=== PATIENT | female | born 1955 | race Two or more races ===

== ENCOUNTER 2016-09-23 16:40 | Observation (INO) | payer MEDICAID ==
[~2016-09-23] VITALS: Ht 152.4 cm; Wt 45.8 kg
[~2016-09-23 16:40] MED LIST: AMOX-263 PO; HYDR25TA4 PO
[2016-09-23 19:32] LABS: Partial Thromboplastin Time 26.8 sec (22.64-33.71); Prothrombin Time 9.4 sec (9.37-12.3)
[2016-09-23 19:33] LABS: Albumin 3.8 g/dL (3.4-5.0); Alkaline Phosphatase 114 U/L (45-117); Anion Gap 9 (5-15); Aspartate Aminotransferase 22 U/L (15-37); BUN/Creatinine Ratio 18.8; Bilirubin, Total 0.4 mg/dL (0.2-1.0); Blood Urea Nitrogen 12 mg/dL (7-18); Calcium 8.8 mg/dL (8.5-10.1); Carbon Dioxide 27 mmol/L (21-32); Chloride 111 mmol/L (98-107); GFR African American 122 mL/min; GFR Non-African American 101 mL/min; Glucose 106 mg/dL (74-106); Magnesium 2.9 mg/dL (1.6-2.6); Potassium 3.8 mmol/L (3.5-5.1); Sodium 147 mmol/L (136-145); Total Protein 7.4 g/dL (6.4-8.2)
[2016-09-23 19:46] LABS: Basophils # (auto) 0 uL; Basophils % (auto) 0.8 % (0.0-2.0); Eosinophils # (auto) 0.2 uL; Eosinophils % (auto) 4.6 % (0.0-7.0); Hematocrit 41.8 % (36.0-46.0); Hemoglobin 14.2 g/dL (12.2-16.2); Lymphocytes # (auto) 1.4 uL; Lymphocytes % (auto) 42.4 % (10.0-50.0); Mean Corpuscular Hemoglobin 30.2 pg (28.0-32.0); Mean Corpuscular Hgb Conc. 33.9 g/dL (32.0-36.0); Mean Corpuscular Volume 89.1 fL (80.0-100.0); Mean Platelet Volume 8.4 fL (7.4-10.4); Monocytes # (auto) 0.4 uL; Monocytes % (auto) 11.8 % (0.0-12.0); Neutrophils # (auto) 1.4 uL; Neutrophils % (auto) 40.4 % (37.0-80.0); Platelet Count (auto) 245 10^3/uL (140-450); Red Cell Distribution Width 12.9 % (11.6-16.0); White Blood Cell 3.4 10^3/uL (4.4-10.8)
[2016-09-23] MEDS ORDERED: cefTRIAXone 1GM/50ML D5W 50 ML IV ONE (20:00)
[2016-09-23] MEDS ORDERED: ACETAMINOPHEN 325 MG TAB PO ONE (20:00)
[2016-09-23 20:11] LABS: INR 0.87 (0.9-1.15)
[2016-09-23 20:45] VITALS: BP 152/96
== END 2016-09-23 21:12 | disposition home or self-care (01) | DRG 144 ==
LOC: ER 16:42 → OVERFLOW 18:15 → ER 21:12
PROVIDERS: ADMIT Family Medicine; ATTEND Family Medicine
DX: J20.9 Acute bronchitis, unspecified (principal); I10 Essential (primary) hypertension
CPT/HCPCS: 36415; 71020; 80053; 83735; 84484; 85025; 85610; 85730; 87040; 93005; 96365; 99285; G0378; J0696; J7040

== ENCOUNTER 2018-03-29 22:01 | Emergency (ER) | payer MEDICAID ==
[~2018-03-29] VITALS: Ht 157.5 cm; Wt 62.1 kg
[2018-03-29 22:50] LABS: Basophils # (auto) 0 uL; Basophils % (auto) 0.8 % (0.0-2.0); Eosinophils # (auto) 0.1 uL; Eosinophils % (auto) 2.9 % (0.0-7.0); Hematocrit 42.9 % (36.0-46.0); Hemoglobin 14.6 g/dL (12.2-16.2); Lymphocytes # (auto) 2.3 uL; Lymphocytes % (auto) 54.9 % (10.0-50.0); Mean Corpuscular Hemoglobin 30.8 pg (28.0-32.0); Mean Corpuscular Hgb Conc. 34.1 g/dL (32.0-36.0); Mean Corpuscular Volume 90.2 fL (80.0-100.0); Monocytes # (auto) 0.3 uL; Monocytes % (auto) 7.1 % (0.0-12.0); Neutrophils # (auto) 1.5 uL; Neutrophils % (auto) 34.3 % (37.0-80.0); Nucleated Red Blood Cells % 0.2 %; Platelet Count (auto) 270 10^3/uL (140-450); Red Blood Cells 4.76 10^6/uL (4.0-5.20); Red Cell Distribution Width 12.9 % (11.8-14.3); White Blood Cell 4.2 10^3/uL (4.4-10.8)
[2018-03-29 23:07] LABS: Alanine Aminotransferase 23 U/L (13-56); Albumin 3.8 g/dL (3.4-5.0); Anion Gap 6 (5-15); Aspartate Aminotransferase 14 U/L (15-37); Blood Urea Nitrogen 14 mg/dL (7-18); Carbon Dioxide 25 mmol/L (21-32); Chloride 110 mmol/L (98-107); GFR African American 109 mL/min; GFR Non-African American 90 mL/min; Glucose 99 mg/dL (74-106); Magnesium 2.5 mg/dL (1.6-2.6); Potassium 3.8 mmol/L (3.5-5.1); Sodium 141 mmol/L (136-145)
[2018-03-29 23:12] LABS: Alkaline Phosphatase 113 U/L (45-117); Bilirubin, Total 0.3 mg/dL (0.2-1.0); Total Protein 7.5 g/dL (6.4-8.2)
[2018-03-30 03:03] LABS: Urine Bacteria FEW /hpf (None Seen); Urine Blood Negative /uL (Negative); Urine Mucus FEW (None Seen); Urine Specific Gravity 1.009 (1.001-1.035); Urine WBC 10 /hpf (0 - 5)
[2018-03-30 05:00] VITALS: BP 107/77
== END 2018-03-30 05:05 | disposition home or self-care (01) ==
LOC: ER 22:02
DX: N83.292 Other ovarian cyst, left side (principal); I10 Essential (primary) hypertension; Z88.0 Allergy status to penicillin
CPT/HCPCS: 36415; 71045; 74176; 80053; 81001; 83735; 83880; 84443; 84484; 85025; 93005

== ENCOUNTER 2018-09-27 06:30 | Emergency (ER) | payer MEDICAID ==
[~2018-09-27] VITALS: Ht 149.9 cm; Wt 63.5 kg
[2018-09-27 07:11] VITALS: BP 137/88
[2018-09-27 07:36] LABS: Basophils # (auto) 0 uL; Basophils % (auto) 0.9 % (0.0-2.0); Eosinophils # (auto) 0.1 uL; Eosinophils % (auto) 3.7 % (0.0-7.0); Hematocrit 41.6 % (36.0-46.0); Hemoglobin 14.3 g/dL (12.2-16.2); Mean Corpuscular Hemoglobin 31.1 pg (28.0-32.0); Mean Corpuscular Hgb Conc. 34.3 g/dL (32.0-36.0); Mean Corpuscular Volume 90.4 fL (80.0-100.0); Monocytes # (auto) 0.3 uL; Monocytes % (auto) 7.8 % (0.0-12.0); Neutrophils # (auto) 1.3 uL; Neutrophils % (auto) 33.6 % (37.0-80.0); Nucleated Red Blood Cells % 0.3 %; Platelet Count (auto) 306 10^3/uL (140-450); Red Cell Distribution Width 12.9 % (11.8-14.3); White Blood Cell 3.8 10^3/uL (4.4-10.8)
[2018-09-27 07:52] LABS: Albumin 3.8 g/dL (3.4-5.0); Anion Gap 3 (5-15); Blood Urea Nitrogen 19 mg/dL (7-18); Calcium 8.7 mg/dL (8.5-10.1); Carbon Dioxide 29 mmol/L (21-32); Chloride 110 mmol/L (98-107); Glucose 92 mg/dL (74-106); Potassium 3.8 mmol/L (3.5-5.1); Sodium 142 mmol/L (136-145)
[2018-09-27 07:58] LABS: Alanine Aminotransferase 34 U/L (13-56); Alkaline Phosphatase 102 U/L (45-117); Aspartate Aminotransferase 25 U/L (15-37); BUN/Creatinine Ratio 24.7; Bilirubin, Total 0.4 mg/dL (0.2-1.0); GFR African American 98 mL/min; GFR Non-African American 81 mL/min; Total Protein 7.4 g/dL (6.4-8.2)
[2018-09-27] MEDS ORDERED: IPRATROPIUM BROM 0.5 MG/2.5ML INH SOL NEB ONE (08:00)
[2018-09-27] MEDS ORDERED: ALBUTEROL SULF 2.5 MG/0.5ML(0.5%) NEB SOLN NEB ONE (08:00)
[2018-09-27] MEDS ORDERED: methylPREDNISolone SOD SUCC 125 MG/2 ML VL IM ONE (08:15)
[2018-09-27] MEDS ORDERED: cefTRIAXone SOD 1,000 MG VL IM ONE (08:15)
== END 2018-09-27 09:00 | disposition home or self-care (01) ==
LOC: ER 06:30
DX: J20.9 Acute bronchitis, unspecified (principal); J02.9 Acute pharyngitis, unspecified; I10 Essential (primary) hypertension
CPT/HCPCS: 36415; 71046; 80053; 84484; 85025; 94640; 96372; 99284; J0696; J2930

== ENCOUNTER 2018-10-08 19:36 | Emergency (ER) | payer MEDICAID ==
[~2018-10-08] VITALS: Ht 175.3 cm; Wt 63.5 kg
[2018-10-08 20:14] VITALS: BP 139/83
[2018-10-08] MEDS ORDERED: KETOROLAC TROMETH 60MG/2ML VIAL IM ONE (23:45)
== END 2018-10-09 00:54 | disposition home or self-care (01) ==
LOC: ER 19:40
DX: S59.901A Unspecified injury of right elbow, initial encounter (principal); I10 Essential (primary) hypertension; Z88.6 Allergy status to analgesic agent; W01.0XXA Fall on same level from slipping, tripping and stumbling without subsequent striking against object, initial encounter; Y93.89 Activity, other specified; Y99.8 Other external cause status; Y92.89 Other specified places as the place of occurrence of the external cause
CPT/HCPCS: 29125; 73080; 96372; 99283; J1885

== ENCOUNTER 2019-03-15 23:31 | Emergency (ER) | payer MEDICAID ==
[~2019-03-15] VITALS: Ht 152.4 cm; Wt 59.0 kg
[2019-03-16 03:34] LABS: Hematocrit 40.2 % (36.0-46.0); Mean Corpuscular Hemoglobin 31.4 pg (28.0-32.0); Mean Corpuscular Hgb Conc. 34.9 g/dL (32.0-36.0); Mean Corpuscular Volume 90.1 fL (80.0-100.0); Platelet Count (auto) 247 10^3/uL (140-450); Red Blood Cells 4.46 10^6/uL (4.0-5.20); Red Cell Distribution Width 13.3 % (11.8-14.3); White Blood Cell 4.1 10^3/uL (4.4-10.8)
[2019-03-16 03:36] LABS: Basophils % (manual) 0 (0.0-2.0); Blast Cells 0; Metamyelocytes % 0; Myelocytes % 0; Promyelocytes % 0; Reactive Lymphocytes 0
[2019-03-16 03:55] LABS: Alanine Aminotransferase 30 U/L (13-56); Albumin 3.9 g/dL (3.4-5.0); Anion Gap 5 (5-15); Aspartate Aminotransferase 16 U/L (15-37); BUN/Creatinine Ratio 23.4; Blood Urea Nitrogen 15 mg/dL (7-18); Calcium 8.8 mg/dL (8.5-10.1); Carbon Dioxide 29 mmol/L (21-32); Chloride 108 mmol/L (98-107); GFR African American 121 mL/min; GFR Non-African American 100 mL/min; Glucose 103 mg/dL (74-106); Potassium 3.5 mmol/L (3.5-5.1); Sodium 142 mmol/L (136-145)
[2019-03-16 03:59] LABS: Alkaline Phosphatase 113 U/L (45-117); Bilirubin, Total 0.2 mg/dL (0.2-1.0); Total Protein 7.4 g/dL (6.4-8.2)
[2019-03-16 04:27] LABS: Band Neutrophils % (manual) 1; Eosinophils % (manual) 5 (0-7); Lymphocytes % (manual) 53 (10.0-50.0); Monocytes % (manual) 8 (0-12)
[2019-03-16 07:39] VITALS: BP 116/75
== END 2019-03-16 08:28 | disposition home or self-care (01) ==
LOC: ER 23:33
DX: S00.83XA Contusion of other part of head, initial encounter (principal); M54.2 Cervicalgia; M62.838 Other muscle spasm; I10 Essential (primary) hypertension; Z88.6 Allergy status to analgesic agent; Z79.2 Long term (current) use of antibiotics; W19.XXXA Unspecified fall, initial encounter; Y93.89 Activity, other specified; Y92.89 Other specified places as the place of occurrence of the external cause; Y99.8 Other external cause status
CPT/HCPCS: 36415; 70450; 72125; 80053; 84484; 85007; 85027

== ENCOUNTER 2020-04-26 14:57 | Inpatient (IN) | payer MEDICAID ==
[~2020-04-26] VITALS: Ht 160 cm; Wt 64.0 kg
[2020-04-26] MEDS ORDERED: methylPREDNISolone SOD SUCC 125 MG/2 ML VL IV ONE (15:15)
[2020-04-26] MEDS ORDERED: ACETAMINOPHEN 325 MG TAB PO ONE ×2 (15:30→16:30)
[2020-04-26] MEDS ORDERED: ZINC SULFATE 220mg CAP or TAB PO ONE (15:30)
[2020-04-26] MEDS ORDERED: ASCORBIC ACID 500 MG TAB PO ONE (15:30)
[2020-04-26 16:30] LABS: Basophils # (auto) 0 10 ^3/uL (0-0.2); Basophils % (auto) 0.4 % (0.0-2.0); Eosinophils # (auto) 0 10 ^3/uL (0-0.8); Hematocrit 38.6 % (36.0-46.0); Hemoglobin 13.3 g/dL (12.2-16.2); Lymphocytes # (auto) 1.2 10 ^3/uL (0.4-5.4); Lymphocytes % (auto) 25.8 % (10.0-50.0); Mean Corpuscular Hemoglobin 30.8 pg (28.0-32.0); Mean Corpuscular Hgb Conc. 34.5 g/dL (32.0-36.0); Mean Corpuscular Volume 89.2 fL (80.0-100.0); Monocytes # (auto) 0.3 10 ^3/uL (0-1.3); Monocytes % (auto) 7.2 % (0.0-12.0); Neutrophils # (auto) 3.1 10 ^3/uL (1.6-8.6); Neutrophils % (auto) 66.6 % (37.0-80.0); Nucleated Red Blood Cells % 0.1 %; Platelet Count (auto) 212 10^3/uL (140-450); Red Blood Cells 4.32 10^6/uL (4.0-5.20); Red Cell Distribution Width 12.9 % (11.8-14.3); White Blood Cell 4.6 10^3/uL (4.4-10.8)
[2020-04-26] MEDS ORDERED: SODIUM CHLORIDE 0.9% 1,000 ML IV ONE (16:30)
[2020-04-26 16:35] LABS: Albumin 3.4 g/dL (3.4-5.0); Calcium 8.4 mg/dL (8.5-10.1); Potassium 3.4 mmol/L (3.5-5.1)
[2020-04-26 16:43] LABS: BUN/Creatinine Ratio 24.6; Bilirubin, Total 0.4 mg/dL (0.2-1.0); CRP High Sensitivity 2.36 mg/dL (< 0.3); Total Protein 7.1 g/dL (6.4-8.2)
[2020-04-26] MEDS ORDERED: LABETALOL HCL 5 MG/ML 4ML SYRINGE IV PRN (18:15)
[2020-04-26] MEDS ORDERED: ACETAMINOPHEN 500 MG TAB PO PRN ×2 (18:15)
[2020-04-26] MEDS ORDERED: ONDANSETRON HCL 4 MG/2 ML VIAL IV PRN (18:15)
[2020-04-26] MEDS ORDERED: NITROGLYCERIN 0.4 MG SL TAB SL PRN (18:15)
[2020-04-26] MEDS ORDERED: MORPHINE SULF INJ 2 MG/ML SYRINGE 1ML IV PRN ×2 (18:15)
[2020-04-26] MEDS ORDERED: POTASSIUM EFFERVESENT TAB 25 MEQ PO ONE (18:15)
[2020-04-26] MEDS: ALBUTEROL SULF HFA 90MCG INH 200DOSE IN SCH (20:14)
[2020-04-26] MEDS: BUDESONIDE (INHALATION) 180 MCG IH IN SCH (20:14)
[2020-04-26 20:20] VITALS: BP 136/68
[2020-04-26 21:36] VITALS: BP 115/74
--- NOTE | 2020-04-26 21:36 | NUR ---
Telemetry admit from ER TORRI HUDDLESTONNELSON admitted to Telemetry unit. Patient oriented to KAMILAH GARCIA RN primary RN, MST unit, room 240, bed B, and unit policies regarding patient care and visiting hours. Patient now on continuous telemetry monitoring, tele box #6 and telemetry reading on arrival to unit is sinus rhythm in the 60s. Patient weighed by bed scale and encouraged to call if they need something. All questions and concerns addressed, patient verbalized understanding. Note: Patient on 2L of oxygen via NC with even and unlabored respirations, no S/S of distress SOB or pain. Patient able to ambulate independently, bed in lowest locked position, side rails up x2, and call light within reach. Will continue to monitor Q1HR PRN.
[2020-04-26] MEDS ORDERED: ALBUTEROL SULF HFA 90MCG INH 200DOSE IN SCH (22:00)
[2020-04-26] MEDS: DOXYCYCLINE 100MG/250ML 250 ML IV SCH (22:05)
[2020-04-26] MEDS ORDERED: ASPI81CH43 PO (23:38)
[2020-04-27 05:00] VITALS: BP 116/68
[2020-04-27] MEDS: ALBUTEROL SULF HFA 90MCG INH 200DOSE IN SCH ×3 (06:05→20:40)
[2020-04-27] MEDS: BUDESONIDE (INHALATION) 180 MCG IH IN SCH ×2 (06:06→20:40)
[2020-04-27 07:10] LABS: Basophils # (auto) 0 10 ^3/uL (0-0.2); Basophils % (auto) 0.1 % (0.0-2.0); Eosinophils # (auto) 0 10 ^3/uL (0-0.8); Hematocrit 37.1 % (36.0-46.0); Lymphocytes % (auto) 42.8 % (10.0-50.0); Mean Corpuscular Hemoglobin 31.1 pg (28.0-32.0); Mean Corpuscular Volume 88.9 fL (80.0-100.0); Monocytes # (auto) 0.1 10 ^3/uL (0-1.3); Monocytes % (auto) 6.5 % (0.0-12.0); Neutrophils # (auto) 1.2 10 ^3/uL (1.6-8.6); Neutrophils % (auto) 50.6 % (37.0-80.0); Platelet Count (auto) 213 10^3/uL (140-450); Red Blood Cells 4.18 10^6/uL (4.0-5.20); Red Cell Distribution Width 13.1 % (11.8-14.3); White Blood Cell 2.3 10^3/uL (4.4-10.8)
[2020-04-27 07:23] LABS: Albumin 3.1 g/dL (3.4-5.0); Calcium 8.1 mg/dL (8.5-10.1); Potassium 3.7 mmol/L (3.5-5.1)
[2020-04-27 07:27] LABS: BUN/Creatinine Ratio 28.6; Bilirubin, Total 0.4 mg/dL (0.2-1.0); Total Protein 6.4 g/dL (6.4-8.2)
[2020-04-27 08:00] VITALS: BP 109/72
[2020-04-27] MEDS: DOXYCYCLINE 100MG/250ML 250 ML IV SCH (09:28)
[2020-04-27] MEDS: ZINC SULFATE 220mg CAP or TAB PO SCH (09:28)
[2020-04-27] MEDS: DexAMETHasone SOD PHOS 10MG/1ML VIAL INJ IV SCH (09:28)
[2020-04-27] MEDS: ENOXAPARIN SOD 40 MG/0.4 ML SYRINGE SC SCH (09:29)
[2020-04-27] MEDS: CHOLECALCIFEROL (VITD3) 2,000 UNIT CAP PO SCH (09:29)
[2020-04-27] MEDS: ASCORBIC ACID 1,000 MG TAB PO SCH (09:29)
[2020-04-27] MEDS: FAMOTIDINE 20 MG TAB PO SCH (09:29)
[2020-04-27] MEDS: guaiFENesin-DM 100/10mg/5ml SYR PO PRN ×2 (09:30→18:16)
[2020-04-27] MEDS ORDERED: cefTRIAXone 1GM/50ML D5W 50 ML IV ONE (10:45)
[2020-04-27] MEDS ORDERED: DOXYCYCLINE 100 MG TAB/CAP PO ONE (10:45)
[2020-04-27 11:26] LABS: Urine WBC None Seen /hpf (0 - 5)
[2020-04-27 11:40] LABS: Urine Bacteria NONE SEEN /hpf (None Seen); Urine Blood Negative /uL (Negative); Urine Specific Gravity 1.001 (1.001-1.035)
--- NOTE | 2020-04-27 11:49 | NUR ---
ss consult Per consult patient has no PCP or insurance. Patient has [employer] insurance. Coco Marinelli to see patient for PCP today. Addendum: 04/27/20 at 1150 by Coco SO Amended: Links added.
[2020-04-27 12:00] VITALS: BP 110/71
--- NOTE | 2020-04-27 12:45 | NUR ---
Dr Sapp bedside with patient discussing plan of care. Orders received and carried out.
[2020-04-27 16:59] VITALS: BP 122/77
--- NOTE | 2020-04-27 19:10 | NUR ---
Opening Shift Note Assumed care of patient, awake, alert and oriented x4, on 2L of oxygen via NC with even and unlabored respirations, no S/S of distress/SOB or pain. Patient able to turn in bed independently, bed in lowest locked position, side rails up x2, and call light within reach. Instructed on POC and to call for assist PRN, will continue to monitor for changes Q1hr and PRN.
[2020-04-27] MEDS: DOXYCYCLINE 100 MG TAB/CAP PO SCH (21:33)
[2020-04-27 22:00] VITALS: BP 127/74
[2020-04-28] MEDS: guaiFENesin-DM 100/10mg/5ml SYR PO PRN ×3 (01:05→22:18)
[2020-04-28] MEDS: HYDROcodone-ACET 5/325MG TAB PO PRN (04:27)
[2020-04-28 04:47] VITALS: BP 130/76
[2020-04-28] MEDS: BUDESONIDE (INHALATION) 180 MCG IH IN SCH ×2 (06:35→21:28)
[2020-04-28] MEDS: ALBUTEROL SULF HFA 90MCG INH 200DOSE IN SCH ×3 (06:35→21:28)
[2020-04-28 08:00] VITALS: BP 123/81
[2020-04-28 08:53] VITALS: BP 123/81
[2020-04-28] MEDS: cefTRIAXone 1GM/50ML D5W 50 ML IV SCH (09:19)
[2020-04-28] MEDS: DexAMETHasone SOD PHOS 10MG/1ML VIAL INJ IV SCH (09:19)
[2020-04-28] MEDS: ZINC SULFATE 220mg CAP or TAB PO SCH (09:20)
[2020-04-28] MEDS: DOXYCYCLINE 100 MG TAB/CAP PO SCH ×2 (09:20→22:18)
[2020-04-28] MEDS: FAMOTIDINE 20 MG TAB PO SCH (09:20)
[2020-04-28] MEDS: CHOLECALCIFEROL (VITD3) 2,000 UNIT CAP PO SCH (09:21)
[2020-04-28] MEDS: ENOXAPARIN SOD 40 MG/0.4 ML SYRINGE SC SCH (09:21)
[2020-04-28] MEDS: ASCORBIC ACID 1,000 MG TAB PO SCH (09:21)
[2020-04-28 10:00] LABS: Calcium 8.4 mg/dL (8.5-10.1); Potassium 3.5 mmol/L (3.5-5.1)
[2020-04-28 10:02] LABS: BUN/Creatinine Ratio 19.1
--- NOTE | 2020-04-28 11:50 | NUR ---
Update on patient provided to Dr Sapp
[2020-04-28 13:00] VITALS: BP 107/68
--- NOTE | 2020-04-28 16:18 | NUR ---
Assessment Patient is a 64-year-old female who is alert and oriented. Patient primary language is [place]. Prior to admission patient lived home with family and functioned independently. Per patient she can care for her own ADLs. Per patient she does no use any medical equipment now. Per patient she feels safe returning home. Per patient she will return home to her prior living arrangements post discharge and family will transport her home. Patient currently has emergency Medical and does not have a primary doctor. Informed patient bedside nurse will schedule her a follow up appointment with the discharge clinic. Advised patient there is a social service consult for home oxygen. Informed patient clinical information will be faxed to [facility]. Informed patient she has the right to participate in all discharge planning. Patient verbalized understanding and agreed to discharge plan. Faxed clinical information to [facility]. Silvio Adames with [facility] they will deliver portable oxygen to bed side and concentrate oxygen to home. Addendum: 04/28/20 at 1624 by JUANA SO Amended: Links added.
[2020-04-28 17:00] VITALS: BP 128/85
--- NOTE | 2020-04-28 20:10 | NUR ---
open note assumed care of pt. upon entering room pt awake alert and on room air with no distress noted or expressed. pt denies any pain. pt oriented to this nurse and updated on plan of care. pt bed locked, low and 2x rails up. call light in reach, pt encouraged to call as needed. this nurse to round q1hr and prn.
--- NOTE | 2020-04-28 21:28 | NUR ---
PT RINSED OUT HER MOUTH POST PULMICORT TX Addendum: 04/28/20 at 2307 by JOSH WATSON RT Amended: Links added.
[2020-04-28 22:00] VITALS: BP 134/77
[2020-04-29 05:00] VITALS: BP 138/78
[2020-04-29] MEDS: HYDROcodone-ACET 5/325MG TAB PO PRN (05:05)
--- NOTE | 2020-04-29 07:20 | NUR ---
OPENING NOTE ASSUMED CARE OF PT. ALERT AND ORIENTED. NO S/S OF SOB/DISTRESS NOTED. BED SET TO LOWEST POSITION/LOCKED. BEDSIDE RAILS UP X2. CALL LIGHT WITHIN REACH. INSTRUCTED PT TO CALL FOR ASSISTANCE. UPDATED ON POC. PT VERBALIZED UNDERSTANDING. WILL CONTINUE TO MONITOR Q1HR AND PRN.
[2020-04-29 09:00] VITALS: BP 129/81
[2020-04-29] MEDS: ALBUTEROL SULF HFA 90MCG INH 200DOSE IN SCH ×2 (09:25→14:42)
[2020-04-29] MEDS: BUDESONIDE (INHALATION) 180 MCG IH IN SCH (09:25)
[2020-04-29] MEDS: cefTRIAXone 1GM/50ML D5W 50 ML IV SCH (09:57)
[2020-04-29] MEDS: DexAMETHasone SOD PHOS 10MG/1ML VIAL INJ IV SCH (09:57)
[2020-04-29] MEDS: FAMOTIDINE 20 MG TAB PO SCH (09:58)
[2020-04-29] MEDS: ZINC SULFATE 220mg CAP or TAB PO SCH (09:58)
[2020-04-29] MEDS: ASCORBIC ACID 1,000 MG TAB PO SCH (09:58)
[2020-04-29] MEDS: CHOLECALCIFEROL (VITD3) 2,000 UNIT CAP PO SCH (09:58)
[2020-04-29] MEDS: DOXYCYCLINE 100 MG TAB/CAP PO SCH (09:58)
[2020-04-29] MEDS: ENOXAPARIN SOD 40 MG/0.4 ML SYRINGE SC SCH (09:59)
[2020-04-29] MEDS ORDERED: DOXY-286 PO (12:15)
[2020-04-29] MEDS ORDERED: METH4PAK PO (12:16)
[2020-04-29] MEDS ORDERED: ASPI-231 PO (12:16)
[2020-04-29] MEDS ORDERED: PANT40TA2 PO (12:17)
[2020-04-29 13:00] VITALS: BP 125/83
[2020-04-29 14:05] VITALS: BP 125/83
--- NOTE | 2020-04-29 14:44 | NUR ---
Discharge Discharge instructions given as ordered. Encourage to follow up at [facility] on 05/05/2020 at 11:00am. All questions and concerns addressed. Patient verbalized understanding.
--- NOTE | 2020-04-29 15:14 | NUR ---
ENDORSED CARE TO DIXON JACQUES.
--- NOTE | 2020-04-29 15:47 | NUR ---
Discharge instructions given as ordered. Encourage to follow up with PMD as instructed. All questions and concerns addressed. Patient verbalized understanding. Medication reconciliation form completed and copy given to patient. Home medications held in Pharmacy returned to patient, and needed vaccines given. IV removed with catheter intact, pressure dressing applied. Telemetry unit returned to ICU. Patient taken to vehicle via wheelchair with all personal belongings, accompanied by staff and family member. No distress noted at time of departure.
== END 2020-04-29 16:00 | disposition home or self-care (01) | DRG 137 ==
LOC: ER 15:02 → TELE 15:03 → TELE-EAST 21:36
PROVIDERS: ADMIT Nurse Practitioner Acute Care; ATTEND Internal Medicine Nephrology
DX: U07.1 COVID-19 (principal); J12.89 Other viral pneumonia; J96.01 Acute respiratory failure with hypoxia; I10 Essential (primary) hypertension; E87.6 Hypokalemia; R55 Syncope and collapse; R73.03 Prediabetes; Z87.891 Personal history of nicotine dependence; Z79.899 Other long term (current) drug therapy
CPT/HCPCS: 36415; 70450; 71045; 80048; 80053; 81001; 82728; 83036; 83615; 83735; 83880; 84443; 85025; 85379; 86141; 87040; 87086; 87426; 93005; 94640; 96374; 99291; G0378; J0696; J1100; J3490

== ENCOUNTER 2020-07-10 22:23 | Emergency (ER) | payer MEDICAID ==
[~2020-07-10] VITALS: Ht 154.9 cm; Wt 63.0 kg
[~2020-07-10 22:23] MED LIST changes: -AMOX-263 PO; +DOXY-286 PO; +METH4PAK PO; +PANT40TA2 PO
[2020-07-10 22:50] LABS: Urine WBC None Seen /hpf (0 - 5)
[2020-07-10 23:08] LABS: Urine Bacteria NONE SEEN /hpf (None Seen); Urine Blood Negative /uL (Negative); Urine Specific Gravity 1.008 (1.001-1.035)
[2020-07-10 23:25] LABS: Hemoglobin 14.5 g/dL (12.2-16.2); Mean Corpuscular Hemoglobin 31.7 pg (28.0-32.0); Mean Corpuscular Hgb Conc. 35.2 g/dL (32.0-36.0); Mean Corpuscular Volume 89.9 fL (80.0-100.0); Platelet Count (auto) 256 10^3/uL (140-450); Red Blood Cells 4.57 10^6/uL (4.0-5.20); Red Cell Distribution Width 13.3 % (11.8-14.3); White Blood Cell 3.4 10^3/uL (4.4-10.8)
[2020-07-10 23:32] LABS: Basophils % (manual) 0 (0.0-2.0); Blast Cells 0; Metamyelocytes % 0; Myelocytes % 0; Promyelocytes % 0; Reactive Lymphocytes 0
[2020-07-10 23:59] LABS: Band Neutrophils % (manual) 1; Eosinophils % (manual) 5 (0-7); Lymphocytes % (manual) 58 (10.0-50.0); Monocytes % (manual) 7 (0-12)
[2020-07-11 00:12] LABS: Alanine Aminotransferase 31 U/L (13-56); Albumin 3.6 g/dL (3.4-5.0); Alkaline Phosphatase 114 U/L (45-117); Anion Gap 5 (5-15); Aspartate Aminotransferase 23 U/L (15-37); BUN/Creatinine Ratio 23.1; Bilirubin, Total 0.3 mg/dL (0.2-1.0); Blood Urea Nitrogen 15 mg/dL (7-18); Calcium 8.1 mg/dL (8.5-10.1); Carbon Dioxide 26 mmol/L (21-32); Chloride 110 mmol/L (98-107); GFR African American 118 mL/min; GFR Non-African American 98 mL/min; Glucose 131 mg/dL (74-106); Potassium 3.5 mmol/L (3.5-5.1); Sodium 141 mmol/L (136-145); Total Protein 6.9 g/dL (6.4-8.2)
[2020-07-11] MEDS ORDERED: IOHEXOL 300 MG/ML 100ML BOTTLE IJ ONE (01:25)
[2020-07-11] MEDS ORDERED: MAGNESIUM CITRATE SOLUTION 300 ML BTL PO ONE (05:00)
[2020-07-11 05:20] VITALS: BP 111/67
== END 2020-07-11 05:20 | disposition home or self-care (01) ==
LOC: ER 22:24
DX: K59.00 Constipation, unspecified (principal); D27.0 Benign neoplasm of right ovary; Z87.891 Personal history of nicotine dependence; Z88.6 Allergy status to analgesic agent
CPT/HCPCS: 36415; 74176; 80053; 81001; 85007; 85027

== ENCOUNTER 2020-12-15 22:09 | Emergency (ER) | payer MEDICAID ==
[~2020-12-15] VITALS: Ht 160 cm; Wt 63.5 kg
[2020-12-15 23:14] LABS: Basophils # (auto) 0 10 ^3/uL (0-0.2); Basophils % (auto) 1.1 % (0.0-2.0); Eosinophils # (auto) 0.1 10 ^3/uL (0-0.8); Hemoglobin 14.2 g/dL (12.2-16.2); Lymphocytes % (auto) 44.7 % (10.0-50.0); Mean Corpuscular Hemoglobin 31.8 pg (28.0-32.0); Mean Corpuscular Hgb Conc. 35.6 g/dL (32.0-36.0); Mean Corpuscular Volume 89.3 fL (80.0-100.0); Monocytes # (auto) 0.3 10 ^3/uL (0-1.3); Monocytes % (auto) 7.6 % (0.0-12.0); Neutrophils % (auto) 44.6 % (37.0-80.0); Nucleated Red Blood Cells % 0.4 %; Platelet Count (auto) 264 10^3/uL (140-450); Red Blood Cells 4.48 10^6/uL (4.0-5.20); Red Cell Distribution Width 12.7 % (11.8-14.3); White Blood Cell 4.5 10^3/uL (4.4-10.8)
[2020-12-15 23:35] LABS: Albumin 3.8 g/dL (3.4-5.0); Anion Gap 7 (5-15); Calcium 8.8 mg/dL (8.5-10.1); Carbon Dioxide 26 mmol/L (21-32); Chloride 107 mmol/L (98-107); Glucose 100 mg/dL (74-106); Sodium 140 mmol/L (136-145)
[2020-12-15 23:39] LABS: Alanine Aminotransferase 23 U/L (13-56); Aspartate Aminotransferase 18 U/L (15-37); BUN/Creatinine Ratio 20.3; Bilirubin, Total 0.4 mg/dL (0.2-1.0); Blood Urea Nitrogen 14 mg/dL (7-18); GFR African American 110 mL/min; GFR Non-African American 91 mL/min
[2020-12-15 23:41] LABS: Alkaline Phosphatase 118 U/L (45-117); Total Protein 7.4 g/dL (6.4-8.2)
[2020-12-16] MEDS ORDERED: IOHEXOL 350 MG/ML 100ML IJ ONE (05:45)
[2020-12-16 06:08] VITALS: BP 110/62
== END 2020-12-16 07:48 | disposition home or self-care (01) ==
LOC: ER 22:13
DX: R60.0 Localized edema (principal); R07.89 Other chest pain; R20.0 Anesthesia of skin; E78.5 Hyperlipidemia, unspecified; I10 Essential (primary) hypertension; Z87.891 Personal history of nicotine dependence
CPT/HCPCS: 36415; 71045; 71275; 80053; 83880; 84484; 85025; 85049; 85379; 99285; Q9967; 93005

== ENCOUNTER 2021-06-17 20:59 | Emergency (ER) | payer MEDICAID ==
[~2021-06-17] VITALS: Ht 165.1 cm; Wt 65.3 kg
[2021-06-17 22:46] LABS: Basophils # (auto) 0 10 ^3/uL (0-0.2); Eosinophils # (auto) 0.1 10 ^3/uL (0-0.8); Eosinophils % (auto) 3.7 % (0.0-7.0); Hemoglobin 13.8 g/dL (12.2-16.2); Mean Corpuscular Hemoglobin 31.5 pg (28.0-32.0); Mean Corpuscular Hgb Conc. 35.4 g/dL (32.0-36.0); Mean Corpuscular Volume 89.1 fL (80.0-100.0); Monocytes # (auto) 0.3 10 ^3/uL (0-1.3); Monocytes % (auto) 7.1 % (0.0-12.0); Neutrophils # (auto) 1.2 10 ^3/uL (1.6-8.6); Neutrophils % (auto) 33.2 % (37.0-80.0); Nucleated Red Blood Cells % 0.1 %; Red Blood Cells 4.37 10^6/uL (4.0-5.20); Red Cell Distribution Width 12.5 % (11.8-14.3); White Blood Cell 3.7 10^3/uL (4.4-10.8)
[2021-06-17 23:01] LABS: Albumin 3.7 g/dL (3.4-5.0); Calcium 8.9 mg/dL (8.5-10.1)
[2021-06-17 23:06] LABS: BUN/Creatinine Ratio 15.4; Bilirubin, Total 0.2 mg/dL (0.2-1.0); Total Protein 6.8 g/dL (6.4-8.2)
[2021-06-17] MEDS ORDERED: IOHEXOL 300 MG/ML 100ML BOTTLE IJ ONE (23:36)
[2021-06-17 23:42] LABS: Urine Bacteria NONE SEEN /hpf (None Seen); Urine Blood Negative /uL (Negative); Urine Hyaline Cast FEW /lpf (0 - 2); Urine Mucus FEW (None Seen); Urine Specific Gravity 1.012 (1.001-1.035); Urine WBC 5 /hpf (0 - 5)
[2021-06-18 03:09] VITALS: BP 162/78
== END 2021-06-18 03:12 | disposition home or self-care (01) ==
LOC: ER 20:59
DX: K29.70 Gastritis, unspecified, without bleeding (principal); N30.90 Cystitis, unspecified without hematuria; E78.5 Hyperlipidemia, unspecified; I10 Essential (primary) hypertension; Z87.891 Personal history of nicotine dependence
CPT/HCPCS: 36415; 74177; 80053; 81001; 85025; 99284; Q9967

== ENCOUNTER 2022-02-23 18:47 | Emergency (ER) | payer MEDICAID ==
[~2022-02-23] VITALS: Ht 152.4 cm; Wt 71.4 kg
[2022-02-23 23:24] LABS: Hematocrit 42.2 % (36.0-46.0); Hemoglobin 14.2 g/dL (12.2-16.2); Mean Corpuscular Hemoglobin 30.3 pg (28.0-32.0); Mean Corpuscular Hgb Conc. 33.7 g/dL (32.0-36.0); Mean Corpuscular Volume 89.9 fL (80.0-100.0); Red Blood Cells 4.69 10^6/uL (4.0-5.20); Red Cell Distribution Width 13.1 % (11.8-14.3); White Blood Cell 3.8 10^3/uL (4.4-10.8)
[2022-02-23 23:29] LABS: Basophils % (manual) 0 (0.0-2.0); Blast Cells 0; Eosinophils % (manual) 0 (0-7); Metamyelocytes % 0; Myelocytes % 0; Promyelocytes % 0; Reactive Lymphocytes 0
[2022-02-23 23:39] LABS: BUN/Creatinine Ratio 17.6; Calcium 9.4 mg/dL (8.5-10.1); Potassium 4.2 mmol/L (3.5-5.1)
[2022-02-23 23:42] LABS: Bilirubin, Total 0.4 mg/dL (0.2-1.0); Total Protein 7.3 g/dL (6.4-8.2)
[2022-02-24 01:17] LABS: Band Neutrophils % (manual) 1; Lymphocytes % (manual) 59 (10.0-50.0); Monocytes % (manual) 7 (0-12)
[2022-02-24] MEDS ORDERED: KETOROLAC TROMETH 30 MG/ML 1ML VIAL IM ONE (01:45)
[2022-02-24 02:07] LABS: CRP High Sensitivity 0.31 mg/dL (< 0.3); Magnesium 2.7 mg/dL (1.6-2.6)
[2022-02-24 04:15] VITALS: BP 141/88
== END 2022-02-24 05:03 | disposition home or self-care (01) ==
LOC: ER 18:47
DX: M79.10 Myalgia, unspecified site (principal); I10 Essential (primary) hypertension; E78.5 Hyperlipidemia, unspecified; Z87.891 Personal history of nicotine dependence; Z79.899 Other long term (current) drug therapy
CPT/HCPCS: 36415; 71045; 80053; 83735; 84484; 85007; 85027; 85652; 86141; 87040; 93005; 96372; 99285; J1885

== ENCOUNTER 2022-04-20 09:51 | Inpatient (IN) | payer MEDICAID ==
[~2022-04-20] VITALS: Ht 162.6 cm; Wt 79.7 kg
[2022-04-20] MEDS ORDERED: HYDROcodone-ACET 10/325MG TAB PO ONE (10:45)
[2022-04-20 10:55] LABS: INR 0.92 (0.9-1.15); Partial Thromboplastin Time 27.6 sec (24.6-33.4)
[2022-04-20 10:59] LABS: Albumin 3.8 g/dL (3.4-5.0); Basophils # (auto) 0 10 ^3/uL (0-0.2); Basophils % (auto) 0.7 % (0.0-2.0); Calcium 8.5 mg/dL (8.5-10.1); Eosinophils # (auto) 0 10 ^3/uL (0-0.8); Eosinophils % (auto) 0.3 % (0.0-7.0); Hematocrit 40.1 % (36.0-46.0); Lymphocytes # (auto) 0.5 10 ^3/uL (0.4-5.4); Lymphocytes % (auto) 8.7 % (10.0-50.0); Mean Corpuscular Hemoglobin 30.7 pg (28.0-32.0); Mean Corpuscular Volume 87.6 fL (80.0-100.0); Monocytes # (auto) 0.4 10 ^3/uL (0-1.3); Monocytes % (auto) 6.3 % (0.0-12.0); Neutrophils # (auto) 5.1 10 ^3/uL (1.6-8.6); Nucleated Red Blood Cells % 0.2 %; Potassium 3.6 mmol/L (3.5-5.1); Red Blood Cells 4.57 10^6/uL (4.0-5.20); Red Cell Distribution Width 12.4 % (11.8-14.3)
[2022-04-20 11:03] LABS: Bilirubin, Total 0.4 mg/dL (0.2-1.0); Total Protein 6.9 g/dL (6.4-8.2)
[2022-04-20] MEDS ORDERED: NITROGLYCERIN 0.4 MG SL TAB SL PRN (14:30)
[2022-04-20] MEDS ORDERED: FUROSEMIDE 20 MG/2 ML VIAL IV ONE (14:30)
[2022-04-20] MEDS ORDERED: ACETAMINOPHEN 325 MG TAB PO PRN (14:30)
[2022-04-20] MEDS ORDERED: ONDANSETRON HCL 4 MG/2 ML VIAL IV PRN (14:30)
[2022-04-20] MEDS ORDERED: MORPHINE SULFATE INJ 2 MG/ml SYRG IV PRN (14:30)
[2022-04-20] MEDS ORDERED: PANTOPRAZOLE 40 MG/10 ML VIAL INJ IV ONE (14:30)
[2022-04-20] MEDS ORDERED: methylPREDNISolone SOD SUCC 125 MG/2 ML VL IM ONE (14:30)
[2022-04-20 14:57] LABS: Cholesterol 242 mg/dL (< 200)
[2022-04-20 15:00] LABS: HDL Cholesterol 67 mg/dL (40-59); LDL Cholesterol 171 mg/dL (< 100); Triglycerides 94 mg/dL (< 150)
[2022-04-20] MEDS ORDERED: ALBUTEROL SULF 2.5 MG/0.5ML(0.5%) NEB SOLN NEB PRN (15:00)
[2022-04-20] MEDS ORDERED: DEXTROSE (50%) 50ML SYRG IV PRN (15:00)
[2022-04-20] MEDS ORDERED: AZITHROMYCIN 500MG/ 250ML 250 ML IV ONE (15:00)
[2022-04-20] MEDS ORDERED: cefTRIAXone 1GM/50ML D5W 50 ML IV ONE (15:00)
[2022-04-20 15:15] VITALS: BP 165/71
[2022-04-20] MEDS ORDERED: IPRATROPIUM BROM 0.5 MG/2.5ML INH SOL NEB SCH (18:00)
[2022-04-20] MEDS: HYDROcodone-ACET 5/325MG TAB PO PRN (21:16)
[2022-04-20 21:30] VITALS: BP 120/62
[2022-04-20] MEDS: SODIUM CHLORIDE 0.9% 1,000 ML IV SCH (21:30)
[2022-04-20] MEDS: InsuLIN REG 1unit/0.01ml Soln (100units/ml) SC SCH (22:00)
[2022-04-20] MEDS: methylPREDNISolone SOD SUCC 125 MG/2 ML VL IV SCH (23:09)
[2022-04-20] MEDS: ACCU-CHEK COMFORT CURVE STRIP VI SCH (23:27)
[2022-04-21] VITALS (7 sets, daily range): BP systolic 104–127; BP diastolic 49–76
[2022-04-21 03:59] LABS: Urine Bacteria NONE SEEN /hpf (None Seen); Urine Blood Negative /uL (Negative); Urine Hyaline Cast FEW /lpf (0 - 2); Urine Specific Gravity 1.009 (1.001-1.035); Urine WBC 61 /hpf (0 - 5); Urine WBC Clumps PRESENT /hpf (None Seen)
[2022-04-21 05:25] LABS: Basophils # (auto) 0 10 ^3/uL (0-0.2); Basophils % (auto) 0.4 % (0.0-2.0); Eosinophils # (auto) 0 10 ^3/uL (0-0.8); Hematocrit 37.3 % (36.0-46.0); Hemoglobin 13.3 g/dL (12.2-16.2); Lymphocytes # (auto) 0.7 10 ^3/uL (0.4-5.4); Lymphocytes % (auto) 18.4 % (10.0-50.0); Mean Corpuscular Hemoglobin 31.3 pg (28.0-32.0); Mean Corpuscular Hgb Conc. 35.7 g/dL (32.0-36.0); Mean Corpuscular Volume 87.6 fL (80.0-100.0); Monocytes # (auto) 0.1 10 ^3/uL (0-1.3); Monocytes % (auto) 2.2 % (0.0-12.0); Neutrophils # (auto) 2.9 10 ^3/uL (1.6-8.6); Red Blood Cells 4.26 10^6/uL (4.0-5.20); Red Cell Distribution Width 12.6 % (11.8-14.3); White Blood Cell 3.7 10^3/uL (4.4-10.8)
[2022-04-21 05:46] LABS: Calcium 8.4 mg/dL (8.5-10.1); Potassium 3.9 mmol/L (3.5-5.1)
[2022-04-21 05:51] LABS: Albumin 3.3 g/dL (3.4-5.0); BUN/Creatinine Ratio 14.7
[2022-04-21 05:52] LABS: Bilirubin, Total 0.4 mg/dL (0.2-1.0); Total Protein 6.4 g/dL (6.4-8.2)
[2022-04-21] MEDS: ALBUTEROL SULF HFA 90MCG INH 200DOSE IN PRN ×2 (06:54→19:43)
[2022-04-21] MEDS: ACCU-CHEK COMFORT CURVE STRIP VI SCH ×4 (06:56→21:20)
[2022-04-21] MEDS: InsuLIN REG 1unit/0.01ml Soln (100units/ml) SC SCH ×4 (06:59→22:20)
[2022-04-21] MEDS: SODIUM CHLORIDE 0.9% 1,000 ML IV SCH (07:10)
[2022-04-21] MEDS: cefTRIAXone 1GM/50ML D5W 50 ML IV SCH (08:46)
[2022-04-21] MEDS: PANTOPRAZOLE 40 MG/10 ML VIAL INJ IV SCH (10:28)
[2022-04-21] MEDS: AZITHROMYCIN 500MG/ 250ML 250 ML IV SCH (10:28)
[2022-04-21] MEDS: ENOXAPARIN SOD 40 MG/0.4 ML SYRINGE SC SCH (10:28)
[2022-04-21] MEDS: methylPREDNISolone SOD SUCC 125 MG/2 ML VL IV SCH ×2 (10:28→21:06)
[2022-04-21] MEDS: HYDROcodone-ACET 5/325MG TAB PO PRN (10:29)
[2022-04-22] MEDS: SODIUM CHLORIDE 0.9% 1,000 ML IV SCH (02:11)
[2022-04-22 05:00] VITALS: BP 110/65
[2022-04-22] MEDS: ACCU-CHEK COMFORT CURVE STRIP VI SCH ×2 (06:30→11:45)
[2022-04-22] MEDS: InsuLIN REG 1unit/0.01ml Soln (100units/ml) SC SCH ×2 (06:41→11:52)
[2022-04-22 09:00] VITALS: BP 130/58
[2022-04-22] MEDS: PANTOPRAZOLE 40 MG/10 ML VIAL INJ IV SCH (10:09)
[2022-04-22] MEDS: methylPREDNISolone SOD SUCC 125 MG/2 ML VL IV SCH (10:09)
[2022-04-22] MEDS: AZITHROMYCIN 500MG/ 250ML 250 ML IV SCH (10:09)
[2022-04-22] MEDS: cefTRIAXone 1GM/50ML D5W 50 ML IV SCH (10:09)
[2022-04-22] MEDS: ENOXAPARIN SOD 40 MG/0.4 ML SYRINGE SC SCH (10:10)
[2022-04-22] MEDS ORDERED: AZIT250T8 PO (12:53)
[2022-04-22] MEDS ORDERED: METH4PAK PO (12:53)
[2022-04-22 13:00] VITALS: BP 148/76
[2022-04-22 13:18] VITALS: BP 120/62
== END 2022-04-22 15:05 | disposition home or self-care (01) | DRG 137 ==
LOC: ER 09:51 → TELE 14:31 → TELE-EAST 20:00
PROVIDERS: ADMIT Nurse Practitioner Family; ATTEND Internal Medicine
DX: U07.1 COVID-19 (principal); J96.01 Acute respiratory failure with hypoxia; J12.82 Pneumonia due to coronavirus disease 2019; I10 Essential (primary) hypertension; R73.9 Hyperglycemia, unspecified; E78.5 Hyperlipidemia, unspecified; K21.9 Gastro-esophageal reflux disease without esophagitis; Z87.891 Personal history of nicotine dependence
CPT/HCPCS: 36415; 71045; 80053; 80061; 81001; 82962; 83036; 83605; 83880; 84443; 84484; 85025; 85379; 85610; 85730; 87040; 87086; 87426; 87804; 93005; 93306; 94640; C9113; G0378; J0696; J1815

== ENCOUNTER 2023-06-18 21:39 | Emergency (ER) | payer MEDICAID ==
[~2023-06-18] VITALS: Ht 152.4 cm; Wt 66.8 kg
[~2023-06-18 21:39] MED LIST changes: +AZIT-81 PO; -DOXY-286 PO
[2023-06-19] MEDS: methylPREDNISolone SOD SUCC 125 MG/2 ML VL IM ONE ×2 (01:38→01:40)
[2023-06-19] MEDS: cefTRIAXone SOD 1,000 MG VL IM ONE ×2 (01:38→01:40)
[2023-06-19] MEDS ORDERED: ALBU108A5 IN (02:59)
[2023-06-19] MEDS ORDERED: PRED20TA2 PO (02:59)
[2023-06-19] MEDS ORDERED: AMOX875T4 PO (02:59)
[2023-06-19 03:27] VITALS: BP 126/72; PULSE 88; RESP 18; TEMP 98.7; O2SAT 95
== END 2023-06-19 03:27 | disposition home or self-care (01) ==
LOC: ER 21:39
DX: J18.9 Pneumonia, unspecified organism (principal); I10 Essential (primary) hypertension; E78.5 Hyperlipidemia, unspecified; Z87.891 Personal history of nicotine dependence; Z79.899 Other long term (current) drug therapy
CPT/HCPCS: 71045; 96372; 99284; J0696; J2930

== ENCOUNTER 2023-11-14 07:18 | Emergency (ER) | payer MEDICAID ==
[~2023-11-14] VITALS: Ht 152.4 cm; Wt 64.6 kg
[~2023-11-14 07:18] MED LIST changes: +ALBU108A5 IN; +AMOX875T4 PO; +AZIT-185 PO; -AZIT-81 PO; +PRED20TA2 PO
[2023-11-14] MEDS: ALBUTEROL SULF 2.5 MG/0.5ML(0.5%) NEB SOLN ONE (08:04)
[2023-11-14] MEDS: IPRATROPIUM BROM 0.5 MG/2.5ML INH SOL NEB ONE ×2 (08:20→08:48)
[2023-11-14] MEDS: ALBUTEROL SULF 2.5 MG/0.5ML(0.5%) NEB SOLN NEB ONE ×2 (08:21→08:48)
[2023-11-14] MEDS ORDERED: ALBUAER3 IN (08:40)
[2023-11-14] MEDS ORDERED: BENZ100C97 PO (08:40)
[2023-11-14] MEDS ORDERED: PRED20TA2 PO (08:40)
[2023-11-14] MEDS ORDERED: AZIT-43 PO (08:44)
[2023-11-14] MEDS: DexAMETHasone SOD PHOS 10MG/1ML VIAL INJ IM ONE (08:44)
[2023-11-14 09:04] VITALS: BP 143/92; PULSE 88; RESP 20; TEMP 98.1; O2SAT 96
== END 2023-11-14 09:05 | disposition home or self-care (01) ==
LOC: ER 07:18
DX: J20.9 Acute bronchitis, unspecified (principal); R06.2 Wheezing; I10 Essential (primary) hypertension; E78.5 Hyperlipidemia, unspecified; Z87.891 Personal history of nicotine dependence; Z79.899 Other long term (current) drug therapy
CPT/HCPCS: 71046; 94640; 96372; 99284; J1100; J7644